=== PATIENT | male | born 1955 | race Caucasian/White ===

== ENCOUNTER 2018-02-02 20:29 | Observation (INO) | payer BC ==
[2018-02-02 21:01] LABS: Absolute Lymphocytes (CBC) 1.7 K/uL (0.7-4.9); Absolute Monocytes 1.3 K/uL (0.1-1.3); Absolute Neutrophil 4.6 K/uL (1.8-8.0); Basophils % 0.9 % (0-1.3); Eosinophils % 6.5 % (0-4.4); Hematocrit 43.6 % (39.6-49.0); Lymphocytes % 20.9 % (15.3-44.8); MCH 29.8 pg (27.0-35.0); Monocytes % 16.2 % (3.3-12.3); RBC Red Blood Cell Count 5.02 M/uL (4.33-5.43)
--- NOTE | 2018-02-02 21:16 | RAD REPORT ---
EXAM DESCRIPTION: RAD - Chest Single View - 02/02/2018 9:06 pm CLINICAL HISTORY: DYSPNEA Chest pain. COMPARISON: No comparisons FINDINGS: Portable technique limits examination quality. The lungs are grossly clear. The heart is upper limit of normal in size. No displaced fractures. IMPRESSION: No acute intrathoracic process suspected.
[2018-02-02 21:22] LABS: Protime INR 0.99
[2018-02-02 21:23] LABS: Albumin 3.6 g/dL (3.4-5.0); Bilirubin Direct 0.1 mg/dL (0-0.2); Bilirubin Total 0.7 mg/dL (0.2-1.0); CKMB Creatine Kinase MB 2.5 ng/mL (0.3-3.6); Magnesium 2.2 mg/dL (1.8-2.4); Potassium 4.1 mmol/L (3.5-5.1); Protein, Total 7.4 g/dL (6.4-8.2)
--- NOTE | 2018-02-02 21:44 | RAD REPORT ---
EXAM DESCRIPTION: CT - Chest For Pe Angio - 02/02/2018 9:33 pm CLINICAL HISTORY: Chest pain. DYSPNEA COMPARISON: Chest Single View dated 02/02/2018; Lower Extremity Artery Uni Ltd dated 06/12/2017; Extre mity Venous Uni Ltd dated 06/12/2017 TECHNIQUE: CT angiogram of the pulmonary arteries was performed with MIP. All CT scans are performed using dose optimization technique as appropriate and may include automated exposure control or mA/KV adjustment according to patient size. FINDINGS: No evidence of pulmonary thromboembolism. No acute aortic finding demonstrated. The lungs are clear. No significant pericardial or pleural fluid. No concerning bony finding. IMPRESSION: No evidence of pulmonary thromboembolism. No acute lung findings.
--- NOTE | 2018-02-02 22:17 | ER ---
Nurse's Notes [facility] Name: John Ferrell Age: 62 yrs Sex: Male : 1955 Arrival Date: 02/02/2018 Time: 20:30 Bed 4 Private MD: Johnny Norton V Diagnosis: Syncope and collapse Presentation: 02/02 20:40 Presenting complaint: Patient states: that he was sitting in a chair at the restaurant and started to cough. He then passed out and the next thing he remembers is waking up on the floor. Denies hitting his head. Is having pain to right hip. Transition of care: patient was not received from another setting of care. Onset of symptoms was February 02, 2018 at 20:00. Risk Assessment: Do you want to hurt yourself or someone else? Patient reports no desire to harm self or others. Initial Sepsis Screen: Does the patient meet any 2 criteria? HR > 90 bpm. Yes Does the patient have a suspected source of infection? No. Patient's initial sepsis screen is negative. Care prior to arrival: None. 20:40 Method Of Arrival: Ambulatory 20:40 Acuity: TRINITY 3 Triage Assessment: 20:45 General: Appears comfortable, well groomed, Behavior is calm, cooperative, appropriate fc for age. Pain: Complains of pain in right hip Pain currently is 1 out of 10 on a pain scale. Quality of pain is described as aching, throbbing, Is continuous, Aggravated by increased activity, repositioning, weight bearing. EENT: No deficits noted. Neuro: Level of Consciousness is awake, alert, obeys commands, Oriented to person, place, time, situation, Reports passing out [employer]. Cardiovascular: No deficits noted. Respiratory: Reports cough that is hacking, persistent Airway is patent Trachea midline Respiratory effort is even, unlabored, Respiratory pattern is regular, symmetrical, Onset: The symptoms/episode began/occurred 1.5 years ago, the patient has mild shortness of breath. GI: No deficits noted. : No deficits noted. Derm: Skin is pink, warm \T\ dry. Musculoskeletal: Circulation, motion, and sensation intact. Capillary refill < 3 seconds, Range of motion:. Historical: - Allergies: 20:43 No Known Allergies; fc - Home Meds: 20:43 levothyroxine 125 mcg tab 1 tab once daily [Active]; atorvastatin 10 mg oral tab 1 tab fc nightly [Active]; 20:45 losartan 50 mg oral tab 1 tab once daily [Active]; fc - PMHx: 20:43 High Cholesterol; Hypothyroidism; fc 20:45 Hypertension; fc - PSHx: 20:43 Knee surgery; fc - Immunization history:: Last tetanus immunization: up to date. - Social history:: Smoking status: Patient/guardian denies using tobacco. - Ebola Screening: : Patient negative for fever greater than or equal to 101.5 degrees Fahrenheit, and additional compatible Ebola Virus Disease symptoms Patient denies exposure to infectious person Patient denies travel to an Ebola-affected area in the 21 days before illness onset. Screenin:40 Abuse screen: Denies threats or abuse. Nutritional screening: No deficits noted. fc Tuberculosis screening: No symptoms or risk factors identified. Fall Risk None identified. Assessment: 20:51 General: Appears in no apparent distress. Behavior is calm, cooperative. Pain: Denies ak1 pain. Neuro: No deficits noted. Cardiovascular: Rhythm is sinus rhythm. Respiratory: Reports shortness of breath with cough X1 year intermittent cough that is dry, hacking, persistent Airway is patent Breath sounds are clear bilaterally. GI: No signs and/or symptoms were reported involving the gastrointestinal system. : No signs and/or symptoms were reported regarding the genitourinary system. EENT: No signs and/or symptoms were reported regarding the EENT system. Derm: No signs and/or symptoms reported regarding the dermatologic system. Musculoskeletal: No signs and/or symptoms reported regarding the musculoskeletal system. 21:50 Reassessment: Patient appears in no apparent distress at this time. No changes from ak1 previously documented assessment. Patient and/or family updated on plan of care and expected duration. Pain level reassessed. Patient is alert, oriented x 3, equal unlabored respirations, skin warm/dry/pink. 23:20 Reassessment: Patient appears in no apparent distress at this time. No changes from ak1 previously documented assessment. Patient and/or family updated on plan of care and expected duration. Pain level reassessed. Patient is alert, oriented x 3, equal unlabored respirations, skin warm/dry/pink. Patient states symptoms have improved. 02/03 00:33 Reassessment: Patient and/or family updated on plan of care and expected duration. Pain ea level reassessed. Patient is alert, oriented x 3, equal unlabored respirations, skin warm/dry/pink. Report called to Joshua MO on second floor. Vital Signs: 02/02 20:43 BP 143 / 83; Pulse 97; Resp 20; Temp 98.8(O); Pulse Ox 94% on R/A; Weight 108.86 kg fc (R); Height 5 ft. 11 in. (180.34 cm) (R); Pain 1/10; 21:51 BP 142 / 79; Pulse 90; Resp 20; Temp 98.6; Pulse Ox 94% ; Pain 0/10; ak1 22:00 BP 144 / 87; Pulse 76; Resp 20; Pulse Ox 98% ; Pain 0/10; ea 23:22 BP 150 / 79; Pulse 77; Resp 18; Temp 98.4; Pulse Ox 98% on R/A; Pain 0/10; ak1 23:56 BP 143 / 82; Pulse 67; Resp 18; Temp 98.3; Pulse Ox 97% on R/A; Pain 0/10; ak1 02/03 00:00 BP 140 / 86; Pulse 70; Resp 18; Pulse Ox 97% on R/A; Pain 0/10; ea 02/02 20:43 Body Mass Index 33.47 (108.86 kg, 180.34 cm) ED Course: 02/02 20:30 Patient arrived in ED. am2 20:30 Johnny Norton MD is Private Physician. am2 20:35 López Cheng MD is Attending Physician. tw4 20:38 Radiology exam delayed due to lab results not completed at this time. (BUN/Creatinine). sj 20:40 Arm band placed on Patient placed in an exam room, on a stretcher. fc 20:40 Patient has correct armband on for positive identification. Placed in gown. Bed in low fc position. Call light in reach. 20:40 No provider procedures requiring assistance completed. fc 20:42 Triage completed. fc 20:51 Mitzy Escalera, RN is Primary Nurse. ak1 20:51 radiation monitor on. Pulse ox on. NIBP on. ak1 20:51 Initial lab(s) drawn, by me, sent to lab. EKG done, by ED staff, reviewed by López Cheng MD. Inserted saline lock: 20 gauge in right antecubital area, using aseptic technique. Blood collected. 21:00 Radiology exam delayed due to lab results not completed at this time. (BUN/Creatinine). mi 21:04 X-ray completed. Portable x-ray completed in exam room. Patient tolerated procedure mh1 well. 21:04 XRAY Chest (1 view) In Process Unspecified. EDMS 21:16 Radiology exam delayed due to lab results not completed at this time. (BUN/Creatinine). [facility] 21:[address] 21:32 CT completed. Patient tolerated procedure well. Patient moved back from CT. nj 21:33 CT Chest For PE Angio In Process Unspecified. EDMS 22:14 Gordo Umanzor MD is Hospitalizing Provider. tw4 23:20 Patient admitted, IV remains in place. ak1 Administered Medications: No medications were administered Outcome: 22:16 Decision to Hospitalize by Provider. tw4 23:20 Condition: stable ak1 23:20 Instructed on the need for admit. 07 00:33 Admitted to Med/surg accompanied by tech, via wheelchair, room 213, Report called to andrzej Lewis RN 00:37 Patient left the ED. andrzej Signatures: Dispatcher [employer] EDMS Esthela Ewing 1 Kellee Castro Felicia, RN RN Mitzy Patiño RN RN id1 Isaac Hankins Amanda am2 McGuire, Victoria 2 Gabriela West RN RN ea Wadley, Terrence, MD MD tw4 Corrections: (The following items were deleted from the chart) 02/02 23:57 23:56 BP 143 / 92; Pulse 67bpm; Resp 18bpm; Pulse Ox 97% RA; Temp 98.3F; Pain 0/10; ak1 ak1
--- NOTE | 2018-02-02 22:17 | EDPHYS ---
Physician Documentation [facility] Name: John Ferrell Age: 62 yrs Sex: Male : 1955 Arrival Date: 02/02/2018 Time: 20:30 Bed 4 Private MD: Johnny Norton V ED Physician López Cheng HPI: 02/03 00:16 This 62 yrs old Male presents to ER via Ambulatory with complaints of tw4 Shortness Of Breath, Passed Out Prior To Arrival. 00:16 The patient has shortness of breath at rest. Onset: The symptoms/episode began/occurred tw4 today. Onset: The symptoms/episode began/occurred just prior to arrival. Duration: The symptoms are continuous, and are unchanged since they started. The patient's shortness of breath has no apparent modifying factors. Associated signs and symptoms: The patient has no apparent associated signs or symptoms. Severity of symptoms: At their worst the symptoms were moderate in the emergency department the symptoms are unchanged. The patient has not experienced similar symptoms in the past. Historical: - Allergies: 02/02 20:43 No Known Allergies; fc - Home Meds: 20:43 levothyroxine 125 mcg tab 1 tab once daily [Active]; atorvastatin 10 mg oral tab 1 tab fc nightly [Active]; 20:45 losartan 50 mg oral tab 1 tab once daily [Active]; fc - PMHx: 20:43 High Cholesterol; Hypothyroidism; fc 20:45 Hypertension; fc - PSHx: 20:43 Knee surgery; fc - Immunization history:: Last tetanus immunization: up to date. - Social history:: Smoking status: Patient/guardian denies using tobacco. - Ebola Screening: : Patient negative for fever greater than or equal to 101.5 degrees Fahrenheit, and additional compatible Ebola Virus Disease symptoms Patient denies exposure to infectious person Patient denies travel to an Ebola-affected area in the 21 days before illness onset. ROS: 02/03 00:16 Constitutional: Negative for fever, chills, and weight loss, Cardiovascular: Negative tw4 for chest pain, palpitations, and edema, Respiratory: Negative for shortness of breath, cough, wheezing, and pleuritic chest pain, Abdomen/GI: Negative for abdominal pain, nausea, vomiting, diarrhea, and constipation, MS/Extremity: Negative for injury and deformity. Neuro: Positive for loss of consciousness, syncope, Negative for altered mental status, dizziness, gait disturbance, headache, hearing loss, numbness, seizure activity. Exam: 00:16 Constitutional: This is a well developed, well nourished patient who is awake, alert, tw4 and in no acute distress. Head/Face: Normocephalic, atraumatic. Chest/axilla: Normal chest wall appearance and motion. Nontender with no deformity. No lesions are appreciated. Cardiovascular: Regular rate and rhythm with a normal S1 and S2. No gallops, murmurs, or rubs. Normal PMI, no JVD. No pulse deficits. Respiratory: Lungs have equal breath sounds bilaterally, clear to auscultation and percussion. No rales, rhonchi or wheezes noted. No increased work of breathing, no retractions or nasal flaring. Abdomen/GI: Soft, non-tender, with normal bowel sounds. No distension or tympany. No guarding or rebound. No evidence of tenderness throughout. Back: No spinal tenderness. No costovertebral tenderness. Full range of motion. MS/ Extremity: Pulses equal, no cyanosis. Neurovascular intact. Full, normal range of motion. Neuro: Awake and alert, GCS 15, oriented to person, place, time, and situation. Cranial nerves II-XII grossly intact. Motor strength 5/5 in all extremities. Sensory grossly intact. Cerebellar exam normal. Normal gait. Vital Signs: 02/02 20:43 BP 143 / 83; Pulse 97; Resp 20; Temp 98.8(O); Pulse Ox 94% on R/A; Weight 108.86 kg fc (R); Height 5 ft. 11 in. (180.34 cm) (R); Pain 1/10; 21:51 BP 142 / 79; Pulse 90; Resp 20; Temp 98.6; Pulse Ox 94% ; Pain 0/10; ak1 22:00 BP 144 / 87; Pulse 76; Resp 20; Pulse Ox 98% ; Pain 0/10; ea 23:22 BP 150 / 79; Pulse 77; Resp 18; Temp 98.4; Pulse Ox 98% on R/A; Pain 0/10; ak1 23:56 BP 143 / 82; Pulse 67; Resp 18; Temp 98.3; Pulse Ox 97% on R/A; Pain 0/10; ak1 07/04 00:00 BP 140 / 86; Pulse 70; Resp 18; Pulse Ox 97% on R/A; Pain 0/10; ea 02/02 20:43 Body Mass Index 33.47 (108.86 kg, 180.34 cm) fc MDM: 02/02 20:35 Patient medically screened. tw02/03 00:16 Differential diagnosis: reactive airway disease, Sepsis. Antibiotic administration: Not tw4 indicated. Data reviewed: vital signs, nurses notes. Counseling: I had a detailed discussion with the patient and/or guardian regarding: the historical points, exam findings, and any diagnostic results supporting the discharge/admit diagnosis. Physician consultation: Gordo Umaznor MD and will see patient in inpatient room. Admission orders: after a detailed discussion of the patient's condition and case, the admit orders are written by me. 00:19 Test interpretation: by ED physician or midlevel provider: ECG. tw02/02 20:36 Order name: Basic Metabolic Panel; Complete Time: 22:04 tw4 02/02 20:36 Order name: CBC with Diff; Complete Time: 00:18 tw4 02/02 20:36 Order name: Ckmb; Complete Time: 22:04 tw4 02/02 20:36 Order name: CPK; Complete Time: 22:04 tw4 02/02 20:36 Order name: LFT's; Complete Time: 22:04 tw02/02 20:36 Order name: Magnesium; Complete Time: 22:04 tw4 02/02 20:36 Order name: NT PRO-BNP; Complete Time: 22:04 tw4 02/02 20:36 Order name: PT-INR; Complete Time: 22:04 tw4 02/02 20:36 Order name: Ptt, Activated; Complete Time: 22:04 tw4 02/02 20:36 Order name: Troponin (emerg Dept Use Only); Complete Time: 22:04 tw4 02/02 20:36 Order name: D-Dimer; Complete Time: 22:04 tw4 02/02 22:22 Order name: Manual Differential; Complete Time: 00:18 EDMS 02/02 22:51 Order name: Urine Dipstick--Ancillary (enter results) rg2 02/02 23:41 Order name: Urine Dipstick-Ancillary; Complete Time: 00:18 EDMS 02/02 20:36 Order name: XRAY Chest (1 view); Complete Time: 22:04 tw4 02/02 20:36 Order name: EKG; Complete Time: 20:37 tw4 02/02 20:36 Order name: Cardiac monitoring; Complete Time: 20:48 tw4 02/02 20:36 Order name: EKG - Nurse/Tech; Complete Time: 20:48 tw4 02/02 20:36 Order name: IV Saline Lock; Complete Time: 20:49 tw4 02/02 20:36 Order name: Labs collected and sent; Complete Time: 20:49 tw4 02/02 20:36 Order name: O2 Per Protocol; Complete Time: 20:49 tw4 02/02 20:36 Order name: O2 Sat Monitoring; Complete Time: 20:49 tw4 02/02 20:36 Order name: Urine Dipstick-Ancillary (obtain specimen); Complete Time: 22:50 tw4 02/02 20:36 Order name: CT Chest For PE Angio; Complete Time: 22:04 tw4 EC:16 Rate is 90 beats/min. Rhythm is regular. QRS [place] is Normal. [place] interval is normal. QRS tw4 interval is normal. QT interval is normal. No Q waves. T waves are Normal. No ST changes noted. Clinical impression: NSR w/ Non-specific ST/T Changes. Interpreted by me. Reviewed by me. Administered Medications: No medications were administered Disposition: 02/02/18 22:16 Hospitalization ordered by Gordo Umanzor for Observation. Preliminary diagnosis is Syncope and collapse. - Bed requested for Telemetry/MedSurg (observation). - Status is Observation. ea - Condition is Stable. - Problem is chronic. - Symptoms have improved. UTI on Admission? No Signatures: Dispatcher [employer] [facility] Shaista Lovett RN RN fc Ballard, Brenda, RN RN bb Antunez, Elena, RN RN ea Wadley, Terrence, MD MD tw4 Corrections: (The following items were deleted from the chart) 02/02 23:48 22:16 Hospitalization Ordered by Gordo Umanzor MD for Observation. Preliminary bb diagnosis is Syncope and collapse. Bed requested for Telemetry/MedSurg (observation). Status is Observation. Condition is Stable. Problem is chronic. Symptoms have improved. UTI on Admission? No. tw4 02/03 00:37 02/02 23:48 02/02/2018 22:16 Hospitalization Ordered by Gordo Umanzor MD for ea Observation. Preliminary diagnosis is Syncope and collapse. Bed requested for Telemetry/MedSurg (observation). Status is Observation. Condition is Stable. Problem is chronic. Symptoms have improved. UTI on Admission? No. bb
[2018-02-02 22:26] LABS: Blood Morphology Comment NOT SEEN (NOT SEEN); Platelet Estimate ADEQ
[2018-02-02] MEDS ORDERED: ACETAMINOPHEN 500 MG TAB PO PRN (22:59)
[2018-02-02] MEDS ORDERED: MORPHINE 2 MG/ML SYR IV PRN (22:59)
[2018-02-02] MEDS ORDERED: ONDANSETRON 4 MG/2 ML VIAL IV PRN (22:59)
[2018-02-02 23:41] LABS: Urine Blood NEGATIVE (NEG); Urine Glucose NEGATIVE (NEG); Urine Protein NEGATIVE (NEG)
[2018-02-03] MEDS: NA CHLORIDE 0.9% 1,000 ML IV SCH ×2 (00:53→12:20)
[2018-02-03 05:25] LABS: Absolute Lymphocytes (CBC) 2.8 K/uL (0.7-4.9); Absolute Monocytes 1.5 K/uL (0.1-1.3); Absolute Neutrophil 3.9 K/uL (1.8-8.0); Basophils % 0.8 % (0-1.3); Eosinophils % 7.1 % (0-4.4); Hematocrit 40.9 % (39.6-49.0); MCH 30.1 pg (27.0-35.0); MCV 87.3 fL (80-100); MPV 9.6 fL (7.6-11.3); RBC Red Blood Cell Count 4.68 M/uL (4.33-5.43)
[2018-02-03 05:30] LABS: Monocytes % 17.2 % (3.3-12.3)
[2018-02-03 05:44] LABS: Albumin 3.1 g/dL (3.4-5.0); Bilirubin Total 0.6 mg/dL (0.2-1.0); Potassium 4.1 mmol/L (3.5-5.1); Protein, Total 6.2 g/dL (6.4-8.2)
[2018-02-03] MEDS ORDERED: LORATADINE 10 MG TAB PO PRN (07:29)
--- NOTE | 2018-02-03 07:35 | P.HP ---
Certification for Inpatient Patient admitted to: Observation With expected LOS: <2 Midnights Patient will require the following post-hospital care: None Practitioner: I am a practitioner with admitting privileges, knowledge of patient current condition, hospital course, and medical plan of care. Services: Services provided to patient in accordance with Admission requirements found in Title 42 Section 412.3 of the Code of Federal Regulations Patient History Date of Service: 02/02/18 Reason for admission: Syncopal episodes History of Present Illness: Patient is a 62-year-old gentleman who came to the hospital after having a syncopal event. Patient was coughing persistently a he apparently passed out. Patient passed out or a couple min. Patient is in call the last few weeks. It has been getting progressively worse. He denies any sick contacts. He was admitted to the hospital for further evaluation. He has seen his orthopedic physician in the last year and a half and had a cardiac catheterization performed which did not reveal any abnormalities. Patient denies any arrhythmia issues. Patient will be admitted for observation. Allergies No Known Allergies Allergy (Unverified 02/02/18 23:08) Home Medications: Aspirin [Adult Aspirin] 81 mg PO DAILY 02/03/18 Atorvastatin Calcium 10 mg PO BEDTIME 02/03/18 Levothyroxine [Synthroid] 125 mcg PO [id number] 02/03/18 Loratadine [Claritin] 10 mg PO DAILY PRN 02/03/18 Losartan Potassium 50 mg PO DAILY 02/03/18 - Past Medical/Surgical History Has patient received pneumonia vaccine in the past: No Diabetic: No -: high cholesterol -: hypothyroidism -: hypertension -: knee surgery - Family History Father Family History: Reviewed- Non-Contributory - Social History Smoking Status: Never smoker Alcohol use: Yes CD- Drugs: No Caffeine use: Yes Place of Residence: Home Review of Systems 10-point ROS is otherwise unremarkable Physical Examination - Vital Signs Temperature: 97.8 F Blood Pressure: 136/70 Pulse: 68 Respirations: 18 Pulse Ox (%): 93 - Physical Exam General: Alert, In no apparent distress, Oriented x3 HEENT: Atraumatic, PERRLA, Mucous membr. moist/pink, EOMI, Sclerae nonicteric Neck: Supple, 2+ carotid pulse no bruit, No LAD, Without JVD or thyroid abnormality Respiratory: Clear to auscultation bilaterally, Normal air movement Cardiovascular: Regular rate/rhythm, Normal S1 S2, No murmurs Gastrointestinal: Normal bowel sounds, Soft and benign, Non-distended, No tenderness Musculoskeletal: No clubbing, No swelling, No tenderness Integumentary: No rashes Neurological: Normal gait, Normal speech, Normal strength at 5/5 x4 extr, Normal tone, Sensation intact, Cranial nerves 3-12 intact, Normal affect Lymphatics: No axilla or inguinal lymphadenopathy - Studies Laboratory Data (last 24 hrs) 02/02/18 20:40: PT 11.7, INR 0.99, APTT 27.2 02/02/18 20:40: WBC 8.2, Hgb 14.9, Hct 43.6, Plt Count 217 02/02/18 20:40: Sodium 141, Potassium 4.1, BUN 16, Creatinine 1.20, Glucose 95, Magnesium 2.2, Total Bilirubin 0.7, AST 37, ALT 44, Alkaline Phosphatase 69 Assessment & Plan - Problems (Diagnosis) (1) Syncope and collapse Current Visit: Yes Status: Acute (2) Vasovagal episode Current Visit: Yes Status: Acute (3) Persistent cough Current Visit: Yes Status: Acute - Plan Plan: 1. Telemetry monitoring 2. Echocardiogram 3. Carotid Doppler 4. Monitor electrolytes 5. Eosinophilia/macrocytosis 6. GI and DVT prophylaxis Discharge Plan: Home Plan to discharge in: 24 Hours - Advance Directives Does patient have a Living Will: Yes Does patient have a Durable POA for Healthcare: Yes - Code Status/Comfort Care Code Status Assessed: Yes Code Status: Full Code Critical Care: No Time Spent Managing PTS Care (In Minutes): 50
[2018-02-03] MEDS ORDERED: LOSARTAN POTASSIUM 50 MG TABLET PO SCH (09:00)
[2018-02-03] MEDS ORDERED: ASPIRIN EC 81 MG TAB PO SCH (09:00)
--- NOTE | 2018-02-03 09:23 | EKG ---
Test Date: 2018-02-03 Test Time: 07:22:38 [facility] Therapist: LINDA MEASUREMENT RESULTS: Intervals: Rate: 65 NM: 186 QRSD: 90 QT: 418 QTc: 434 [place]: P: 84 NM: 186 QRS: 47 T: 85 INTERPRETIVE STATEMENTS: Normal sinus rhythm Normal ECG Compared to ECG 02/02/2018 20:37:38 Sinus arrhythmia no longer present Myocardial infarct finding no longer present Electronically Signed On 02-03-18 09:22:34 CDT by Tonio Jeff
--- NOTE | 2018-02-03 09:24 | EKG ---
Test Date: 2018-02-02 Test Time: 20:37:38 Telephone Sales Representative: VÍCTOR MEASUREMENT RESULTS: Intervals: Rate: 90 MN: 182 QRSD: 84 QT: 354 QTc: 433 [place]: P: 56 MN: 182 QRS: 6 T: 54 INTERPRETIVE STATEMENTS: Sinus rhythm with marked sinus arrhythmia Cannot rule out Anterior infarct, age undetermined Abnormal ECG Compared to ECG 07/09/2012 08:16:55 Myocardial infarct finding now present Electronically Signed On 02-03-18 09:22:50 CDT by Tonio Jeff
--- NOTE | 2018-02-03 12:13 | RAD REPORT ---
EXAM DESCRIPTION: VAS - CP - 02/03/2018 11:28 am COMPARISON: None. TECHNIQUE: Real-time sonographic evaluation of both carotid systems was performed. Doppler interroga tion was performed with waveform tracing bilaterally. FINDINGS: Normal high resistance waveforms are noted in both external carotid arteries. The common c arotid arteries and internal carotid arteries show normal low resistance waveforms. Bilateral common carotid intimal thickening is seen. Minimal calcified plaquing changes are present i n the distal right common carotid and bulb. On visual inspection no dissection or significant luminal narrowing atherosclerotic disease. No suspicious waveform pattern. Peak systolic and end diastolic v elocity values and the ICA/CCA ratios are in the non-hemodynamically significant range. Symmetric common carotid artery peak systolic velocities were recorder knee measuring 85 cm/second on the right and 83 cm/second on the left. Internal carotid artery's range from 45-86 cm/second on the right and between 44-80 cm/second on the left. Velocity variability is not suspected to be due to agapito nosis. ICA/CCA ratios are 1.0 bilaterally. Antegrade flow seen in both vertebral arteries. Velocity values and ratios were recorded and are retained in the patient's imaging records. IMPRESSION: Scattered atherosclerotic changes are present mild in degree. No evidence of a hemodynamically significant stenosis.
--- NOTE | 2018-02-03 13:20 | P.SSS ---
Patient History Date of Service: 02/03/18 Primary Care Provider: dr espinal Cardiology Reason for admission: Syncopal episodes History of Present Illness: Patient is a 62-year-old gentleman who came to the hospital after having a syncopal event. Patient was coughing persistently a he apparently passed out. Patient passed out or a couple min. Patient is in call the last few weeks. It has been getting progressively worse. He denies any sick contacts. He was admitted to the hospital for further evaluation. 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 Patient denies any arrhythmia issues. Patient will be admitted for observation. Allergies No Known Allergies Allergy (Unverified 02/02/18 23:08) Home Medications: Aspirin [Adult Aspirin] 81 mg PO DAILY 02/03/18 Atorvastatin Calcium 10 mg PO BEDTIME 02/03/18 Levothyroxine [Synthroid*] 125 mcg PO [id number] 02/03/18 Loratadine [Claritin*] 10 mg PO DAILY PRN 02/03/18 Losartan Potassium 50 mg PO DAILY 02/03/18 - Past Medical/Surgical History Has patient received pneumonia vaccine in the past: No Diabetic: No -: high cholesterol -: hypothyroidism -: hypertension -: knee surgery - Social History Smoking Status: Never smoker Alcohol use: Yes CD- Drugs: No Caffeine use: Yes Place of Residence: Home Review of Systems General: As per HPI Physical Examination - Vital Signs Temperature: 98.4 F Blood Pressure: 143/79 Pulse: 71 Respirations: 18 Pulse Ox (%): 94 - Physical Exam General: Alert, In no apparent distress HEENT: Atraumatic, PERRLA, Mucous membr. moist/pink, EOMI, Sclerae nonicteric Neck: Supple, 2+ carotid pulse no bruit, No LAD, Without JVD or thyroid abnormality Respiratory: Clear to auscultation bilaterally, Normal air movement Cardiovascular: Regular rate/rhythm, Normal S1 S2 Gastrointestinal: Normal bowel sounds, No tenderness Musculoskeletal: No tenderness Integumentary: No rashes Neurological: Normal gait, Normal speech, Normal strength at 5/5 x4 extr, Normal tone, Normal affect Lymphatics: No axilla or inguinal lymphadenopathy - Studies Laboratory Data (last 24 hrs) 02/02/18 20:40: PT 11.7, INR 0.99, APTT 27.2 02/02/18 20:40: WBC 8.2, Hgb 14.9, Hct 43.6, Plt Count 217 02/02/18 20:40: Sodium 141, Potassium 4.1, BUN 16, Creatinine 1.20, Glucose 95, Magnesium 2.2, Total Bilirubin 0.7, AST 37, ALT 44, Alkaline Phosphatase 69 - Diagnosis (Problem(s)) (1) Vasovagal episode Current Visit: Yes Status: Resolved Plan: All imaging studies negative. Syncopal Episode most likely vasovagal and pt cleared for DC now. (2) Syncope and collapse Current Visit: Yes Status: Resolved (3) Persistent cough Current Visit: Yes Status: Resolved - Disposition Disposition: ROUTINE DISCHARGE Condition: GOOD Patient Discharge Instructions: Please f.u with PCP and Cardiology in 1 to 2 weeks post discharge. No new medication. You were admitted to hospital Syncope which was most likely caused by Vasovagal. All your lab work and imaging was negative and you are asked to f.u with cardiology and PCP post discharge. Diet: Regular Activity: Ad tio
[2018-02-03] MEDS ORDERED: ATORVASTATIN 10 MG TAB PO SCH (21:00)
[2018-02-04] MEDS ORDERED: LEVOTHYROXINE SOD 0.125 MG TAB PO SCH (06:00)
== END 2018-02-03 15:05 | disposition home or self-care (01) ==
LOC: ER 20:29 → ERHOLD 22:38 → 2ND 23:50
PROVIDERS: ADMIT Hospitalist; ATTEND Family Medicine
DX: R55 Syncope and collapse (principal); R05 Cough; Z79.82 Long term (current) use of aspirin; E78.00 Pure hypercholesterolemia, unspecified; E03.9 Hypothyroidism, unspecified; I10 Essential (primary) hypertension
CPT/HCPCS: 36415; 71045; 71275; 80048; 80053; 80076; 81003; 82550; 82553; 83735; 83880; 84484; 85025; 85379; 85610; 85730; 87070; 87205; 93005; 93880; 99285; G0378; J2270; J7030; Q9967

== ENCOUNTER 2019-07-13 15:38 | Observation (INO) | payer BC, OTHER ==
[2019-07-13] MEDS ORDERED: DIPHENHYDRAMINE 25 MG TAB/CAP PO PRN (16:54)
[2019-07-13] MEDS ORDERED: ONDANSETRON 4 MG/2 ML VIAL IV PRN (16:55)
[2019-07-13] MEDS ORDERED: LOPERAMIDE HCL 2 MG CAPSULE PO PRN (16:55)
[2019-07-13] MEDS ORDERED: POLYETHYL GLY 3350 17 GM/DOSE PO PRN (16:56)
[2019-07-13 17:01] VITALS: BMI 32.5
[2019-07-13] MEDS: Ringers Lactate 1,000 ML IV SCH (17:26)
[2019-07-13 17:28] LABS: Absolute Lymphocytes (CBC) 1.2 K/uL (0.7-4.9); Basophils % 0.8 % (0-1.3); Hematocrit 42.5 % (39.6-49.0); Lymphocytes % 18.5 % (15.3-44.8); MPV 9.5 fL (7.6-11.3); RBC Red Blood Cell Count 4.92 M/uL (4.33-5.43)
[2019-07-13 17:36] LABS: Protime INR 1.05
[2019-07-13] MEDS ORDERED: ENOXAPARIN 40 MG/0.4 ML SQ SCH (18:00)
[2019-07-13 18:08] LABS: Albumin 3.7 g/dL (3.4-5.0); Bilirubin Direct 0.3 mg/dL (0-0.2); Bilirubin Total 1.1 mg/dL (0.2-1.0); Magnesium 2.2 mg/dL (1.8-2.4); Phosphorus 2.7 mg/dL (2.5-4.9); Potassium 4.2 mmol/L (3.5-5.1); Protein, Total 7.4 g/dL (6.4-8.2); Thyroid Stimulating Hormone 0.341 uIU/mL (0.360-3.740)
[2019-07-13 18:25] LABS: MPV 10.1 fL (7.6-11.3)
[2019-07-13 18:28] LABS: Platelet Estimate ADEQ
--- NOTE | 2019-07-13 19:06 | RAD REPORT ---
EXAM DESCRIPTION: CT - Chest Abdomen Pelvis W Cont - 07/13/2019 6:45 pm CLINICAL HISTORY: Chest and abdomen pain. fever of unknown origiin COMPARISON: No comparisons TECHNIQUE: Approximately 100 mL nonionic IV contrast was administered to the patient. All CT scans are performed using dose optimization technique as appropriate and may include automated exposure control or mA/KV adjustment according to patient size. FINDINGS: Mild linear subsegmental atelectasis in both posterior lung bases.No focal infiltrate is s een.No pleural or pericardial effusion.No intrathoracic adenopathy. Mild diffuse fatty liver. 10 mm cyst is seen in the anterior right lobe of the liver. The spleen, stinson creas, adrenal glands and right kidney are normal. Left kidney contains a 4 cm benign cyst. No bowel obstruction, free air, free fluid or abscess. Normal appendix. Mild sigmoid diverticulosis i s present. No pathologic lymphadenopathy in the abdomen or pelvis. No worrisome osseous finding. IMPRESSION: No acute process is identified.
--- NOTE | 2019-07-13 19:08 | RAD REPORT ---
EXAM DESCRIPTION: RAD - Chest Pa And Lat (2 Views) - 07/13/2019 6:48 pm CLINICAL HISTORY: fever of unknown origin Chest pain. COMPARISON: Chest Single View dated 02/02/2018 FINDINGS: Mild interstitial prominence is present bilaterally suggesting interstitial pneumonitis or asthma. The heart is upper limit normal in size. No displaced fractures.
[2019-07-13 19:23] LABS: Urine Appearance CLEAR; Urine Bilirubin NEGATIVE (NEG); Urine Blood NEGATIVE (NEG); Urine Color YELLOW; Urine Glucose NEGATIVE (NEG); Urine Protein NEGATIVE (NEG); Urine Specific Gravity <=1.005 (1.005-1.030); Urine Urobilinogen 0.2 mg/dL (0.2-1.0)
[2019-07-13 19:28] LABS: Urine Microscopic Reflex NO UMIC
[2019-07-13 19:58] LABS: UR MICROALBUMIN < 0.5 mg/dL (< 1.9)
[2019-07-13] MEDS: ACETAMINOPHEN 325 MG TABLET PO PRN (20:35)
[2019-07-13] MEDS ORDERED: ATORVASTATIN 10 MG TAB PO SCH (21:00)
[2019-07-14] MEDS: Ringers Lactate 1,000 ML IV SCH ×2 (04:17→13:00)
[2019-07-14 04:49] LABS: Absolute Lymphocytes (CBC) 1.8 K/uL (0.7-4.9); Basophils % 0.9 % (0-1.3); Hematocrit 41.3 % (39.6-49.0); Lymphocytes % 29.9 % (15.3-44.8); MPV 9.7 fL (7.6-11.3); RBC Red Blood Cell Count 4.74 M/uL (4.33-5.43)
[2019-07-14 04:57] LABS: Magnesium 2.4 mg/dL (1.8-2.4); Potassium 4.2 mmol/L (3.5-5.1)
[2019-07-14 05:39] LABS: Blood Morphology Comment NOT SEEN (NOT SEEN); Platelet Estimate ADEQ
[2019-07-14] MEDS ORDERED: HOME MED 1 EA UNK (Levothyroxine Sodium [Levothyroxine Sodium] 137 MCG) PO SCH (06:00)
[2019-07-14] MEDS ORDERED: LEVOTHYROXINE SOD 0.112 MG TAB PO SCH (06:30)
[2019-07-14] MEDS ORDERED: LEVOTHYROXINE SOD 0.025 MG TAB PO SCH (06:30)
[2019-07-14] MEDS ORDERED: LOSARTAN POTASSIUM 50 MG TABLET PO SCH (09:00)
[2019-07-14] MEDS ORDERED: ASPIRIN EC 81 MG TAB PO SCH (09:00)
[2019-07-14] MEDS: ACETAMINOPHEN 325 MG TABLET PO PRN (09:00)
[2019-07-14] MEDS ORDERED: DOCOSAHEXANOIC AC/EPA 1000 MG PO SCH (09:00)
[2019-07-14] MEDS ORDERED: TORSEMIDE 20 MG TAB PO SCH (09:00)
[2019-07-14 10:51] VITALS: O2SAT 97
[2019-07-14 13:14] VITALS: BP 118/59; TEMP 98
--- NOTE | 2019-07-14 14:56 | EKG ---
Test Date: 2019-07-14 Test Time: 09:19:21 Sales Lead Generator: MOIZ MEASUREMENT RESULTS: Intervals: Rate: 88 NC: 170 QRSD: 86 QT: 382 QTc: 462 [place]: P: 64 NC: 170 QRS: 12 T: 58 INTERPRETIVE STATEMENTS: Normal sinus rhythm Normal ECG Compared to ECG 02/03/2018 07:22:38 No significant changes Electronically Signed On 07-14-19 14:55:04 PASSENGER SOLICITOR by Tonio Jeff
--- NOTE | 2019-07-14 15:34 | ECHO ---
HEIGHT: 5 ft 11 in WEIGHT: 232 lb 8 oz DATE OF STUDY: 07/14/[address]: Johnny Norton MD 2-DIMENSIONAL: YES M.MODE: YES DOPPLER: YES COLOR FLOW: YES TDS: PORTABLE: DEFINITY: BUBBLE STUDY: DIAGNOSIS: FEVER UNKNOWN ORIGIN CARDIAC HISTORY: CATHERIZATION: NO SURGERY: NO PROSTHETIC VALVE: NO PACEMAKER: NO MEASUREMENTS (cm) DIASTOLIC (NORMALS) SYSTOLIC (NORMALS) IVSd 1.0 (0.6-1.2) LA Diam 3.8 (1.9-4.0) LVEF 79% LVIDd 5.1 (3.5-5.7) LVIDs 2.6 (2.0-3.5) %FS 48% LVPWd 1.0 (0.6-1.2) Ao Diam 3.2 (2.0-3.7) 2 DIMENSIONAL ASSESSMENT: RIGHT ATRIUM: NORMAL LEFT ATRIUM: NORMAL RIGHT VENTRICLE: NORMAL LEFT VENTRICLE: NORMAL TRICUSPID VALVE: NORMAL MITRAL VALVE: NORMAL PULMONIC VALVE: NORMAL AORTIC VALVE: NORMAL PERICARDIAL EFFUSION: NONE AORTIC ROOT: NORMAL LEFT VENTRICULAR WALL MOTION: NORMAL DOPPLER/COLOR FLOW: NORMAL COMMENTS: NORMAL 2-DIMENSIONAL ECHOCARDIOGRAM WITH DOPPLER. NO VEGETATION. NO EFFUSION. NO THROMBUS. TECHNOLOGIST: RERE RODRIGUEZ
--- NOTE | 2019-07-15 05:56 | DS ---
Date of Discharge: 07/14/2019 Final Diagnosis: Viral fever. Secondary Diagnosis: Dehydration. Hospital Course: Patient is a 64-year-old gentleman who just lost his daughter, who was sick with na usea, vomiting, and all of a sudden became unconscious. He gave her [id number] breathing and he got sick after that. He came yesterday and we admitted him for 24-hour observation. His CT scan of chest, abdomen, and pelvis was negative for any kind of infection. Lab work does not show any obviou s bacterial infection. His procalcitonin is normal. He continues to have low-grade fever. He feels a lot better after hydration. He understands he most likely has a viral fever and he will take some time to get over this. His flu test in my office was negative, strep test in the hospital was negat cameron, and currently Tylenol p.r.n. for fever. If he has any more complaints, he will be coming to off ice or calling me. DANY/GINA Voice ID: [id number] Report ID: [id number]
[2019-07-19 11:39] LABS: Vitamin D 1,25-Dihydroxy Total 38 pg/mL (18-72); Vitamin D,1,25-OH2, D2 <8 pg/mL
== END 2019-07-14 14:38 | disposition home or self-care (01) ==
LOC: 2ND 15:59
PROVIDERS: ADMIT Internal Medicine; ATTEND Internal Medicine
DX: R50.9 Fever, unspecified (principal); E86.0 Dehydration; B34.9 Viral infection, unspecified; I10 Essential (primary) hypertension; E78.5 Hyperlipidemia, unspecified; I25.10 Atherosclerotic heart disease of native coronary artery without angina pectoris; E03.9 Hypothyroidism, unspecified; Z96.653 Presence of artificial knee joint, bilateral
CPT/HCPCS: 93005; 93306; 87040 ×3; 87070; 85025 ×2; 80048; 36415 ×2; 83735 ×2; 84100; 85049; 85610; 87081; 83605; 85730; 82652; 84443; 81003; 82248; 83036; 82570; 82607; 80053; 84145; 82043; 71260; 74177; 71046; Q9967; G0379; J1650; J7120 ×2; G0378 ×3